=== PATIENT | male | born 1955 | race Asian ===

== ENCOUNTER 2018-05-10 19:36 | Inpatient (IN) | payer SELFPAY ==
[~2018-05-10] VITALS: Ht 170.2 cm; Wt 72.6 kg
[2018-05-10 19:45] VITALS: BP_SYST 156
[2018-05-10] MEDS ORDERED: NACL 0.9% 1,000 ML IV ONE (20:55)
[2018-05-10] MEDS ORDERED: hydrALAZINE HCL 20 MG/ML VIAL IM ONE (21:00)
[2018-05-10] MEDS ORDERED: ASPIRIN 81 MG TAB.CHEW PO ONE (21:00)
[2018-05-10 21:20] LABS: HEMATOCRIT 46.8 % (36-54); HEMOGLOBIN 15.9 g/dL (14.0-18.0); MEAN CORPUSCULAR HEMOGLOBIN 33 pg (27-31); MEAN CORPUSCULAR HGB CONC 34 % (32-36); MEAN CORPUSCULAR VOLUME 98 fL (79.0-98.0); RED BLOOD CELL COUNT(AUTO) 4.79 MIL/uL (4.2-6.2); WHITE BLOOD COUNT (AUTO) 5.7 K/uL (4.8-10.8)
[2018-05-10 21:21] LABS: BASOPHILS # (AUTO) 0.1 K/uL (0.0-0.2); BASOPHILS % (AUTO) 0.9 % (0.0-2.0); EOSINOPHILS # (AUTO) 0.1 K/uL (0.0-0.4); EOSINOPHILS % (AUTO) 1.1 % (0.0-4.0); LYMPHOCYTES % (AUTO) 17.1 % (20.5-51.5); MONOCYTES # (AUTO) 0.5 K/uL (0.0-1.0); MONOCYTES % (AUTO) 9.4 % (1.7-9.3); NEUTROPHILS # (AUTO) 4.1 K/uL (1.8-7.7); NEUTROPHILS % (AUTO) 71.5 % (40.0-70.0); PLATELET COUNT (AUTO) 156 K/uL (130-430); RED CELL DISTRIBUTION WIDTH 12.8 % (9.0-15.0)
[2018-05-10 21:27] LABS: ANION GAP 5 (5-15); CHLORIDE 103 mmol/L (98-107); CREATININE 0.93 mg/dL (0.55-1.30); GLUCOSE 134 mg/dL (70-99); POTASSIUM 3.8 mmol/L (3.5-5.1); SODIUM SERUM 137 mmol/L (136-145); UREA NITROGEN, BLOOD 22 mg/dL (8-21)
[2018-05-10 21:30] LABS: GFR AFRICAN AMERICAN 105 mL/min (>90)
[2018-05-10 21:31] LABS: C-REACTIVE PROTEIN QUANT 0.8 mg/dL (0-0.5)
[2018-05-10 21:33] LABS: PROTHROMBIN TIME 9.8 SECS (9.5-12.5)
[2018-05-10 21:38] LABS: ALANINE AMINOTRANSFERASE 27 U/L (12-78); ALBUMIN 3.6 g/dL (3.4-4.8); ASPARTATE AMINOTRANSFERASE 21 U/L (10-37); TOTAL BILIRUBIN 0.6 mg/dL (0.0-1.0)
[2018-05-10] MEDS ORDERED: METOPROLOL TARTRATE 5 MG/5 ML VIAL IVP ONE (22:00)
[2018-05-10] MEDS ORDERED: LORazepam 2 MG/ML VIAL IVP PRN (22:30)
[2018-05-10] MEDS ORDERED: ONDANSETRON HCL 4 MG/2 ML VIAL IVP PRN (22:30)
[2018-05-10] MEDS ORDERED: ACETAMINOPHEN 325 MG TABLET PO PRN (22:30)
[2018-05-10] MEDS ORDERED: cloNIDine HCL 0.1 MG TABLET PO ONE (22:45)
[2018-05-10] MEDS ORDERED: NITROPRUSSIDE SODIUM 50 MG in D5W 248 ML IV PRN (23:15)
[2018-05-11] VITALS (23 sets, daily range): BP systolic 106–166
[2018-05-11] MEDS ORDERED: NITROPRUSSIDE SODIUM 25 MG/ML VIAL(NIPRIDE) IV ONE (00:11)
[2018-05-11] MEDS ORDERED: NITROPRUSSIDE SODIUM 50 MG in D5W 248 ML IV PRN (01:45)
[2018-05-11] MEDS: D5/0.45 NS 1,000 ML IV SCH ×3 (01:50→22:18)
[2018-05-11 02:59] LABS: BILIRUBIN,URINE NEGATIVE (NEGATIVE); BLOOD, URINE NEGATIVE (NEGATIVE); CLARITY/URINE CLEAR (CLEAR); COLOR,URINE YELLOW (YELLOW); GLUCOSE,URINE NEGATIVE (NEGATIVE); KETONES,URINE NEGATIVE (NEGATIVE); LEUKOCYTE ESTERASE ,URINE NEGATIVE (NEGATIVE); NITRITE, URINE NEGATIVE (NEGATIVE); PROTEIN URINE NEGATIVE (NEGATIVE); UROBILINOGEN,URINE 0.2 (0.2-1.0)
[2018-05-11 06:35] LABS: ALBUMIN 3.3 g/dL (3.4-4.8); CALCIUM 8.5 mg/dL (8.4-11.0); CREATININE 0.77 mg/dL (0.55-1.30); PHOSPHORUS 2.7 mg/dL (2.7-4.5); POTASSIUM 3.6 mmol/L (3.5-5.1)
[2018-05-11 06:44] LABS: HEMOGLOBIN 15.2 g/dL (14.0-18.0); RED BLOOD CELL COUNT(AUTO) 4.48 MIL/uL (4.2-6.2); WHITE BLOOD COUNT (AUTO) 8.6 K/uL (4.8-10.8)
[2018-05-11 06:48] LABS: HEMATOCRIT 44.1 % (36-54); MEAN CORPUSCULAR HEMOGLOBIN 34 pg (27-31); MEAN CORPUSCULAR HGB CONC 34 % (32-36); MEAN CORPUSCULAR VOLUME 98 fL (79.0-98.0); PLATELET COUNT (AUTO) 165 K/uL (130-430); RED CELL DISTRIBUTION WIDTH 12.8 % (9.0-15.0)
[2018-05-11 06:50] LABS: BASOPHILS % (AUTO) 0.4 % (0.0-2.0); EOSINOPHILS % (AUTO) 0.1 % (0.0-4.0); LYMPHOCYTES % (AUTO) 11.7 % (20.5-51.5); MONOCYTES # (AUTO) 0.8 K/uL (0.0-1.0); MONOCYTES % (AUTO) 9.2 % (1.7-9.3); NEUTROPHILS # (AUTO) 6.8 K/uL (1.8-7.7); NEUTROPHILS % (AUTO) 78.6 % (40.0-70.0)
[2018-05-11] MEDS: ASPIRIN 325 MG TABLET PO SCH (08:53)
[2018-05-11] MEDS ORDERED: amLODIPine BESYLATE 10 MG TABLET ONE (21:58)
[2018-05-11] MEDS ORDERED: METOPROLOL TARTRATE 50 MG TABLET ONE (21:59)
[2018-05-11] MEDS: amLODIPine BESYLATE 10 MG TABLET PO SCH (22:04)
[2018-05-11] MEDS: METOPROLOL TARTRATE 50 MG TABLET PO SCH (22:05)
[2018-05-12] VITALS (16 sets, daily range): BP systolic 108–161
[2018-05-12 06:56] LABS: CALCIUM 8.3 mg/dL (8.4-11.0); CREATININE 0.69 mg/dL (0.55-1.30); POTASSIUM 3.6 mmol/L (3.5-5.1)
[2018-05-12] MEDS: ASPIRIN 325 MG TABLET PO SCH (08:14)
[2018-05-12] MEDS: METOPROLOL TARTRATE 50 MG TABLET PO SCH (08:15)
[2018-05-12] MEDS: amLODIPine BESYLATE 10 MG TABLET PO SCH (08:16)
[2018-05-12] MEDS: D5/0.45 NS 1,000 ML IV SCH (08:17)
[2018-05-12 08:46] LABS: HEMATOCRIT 43.9 % (36-54); HEMOGLOBIN 14.7 g/dL (14.0-18.0); MEAN CORPUSCULAR HEMOGLOBIN 33 pg (27-31); MEAN CORPUSCULAR HGB CONC 33 % (32-36); MEAN CORPUSCULAR VOLUME 99 fL (79.0-98.0); PLATELET COUNT (AUTO) 153 K/uL (130-430); RED BLOOD CELL COUNT(AUTO) 4.42 MIL/uL (4.2-6.2); RED CELL DISTRIBUTION WIDTH 12.8 % (9.0-15.0); WHITE BLOOD COUNT (AUTO) 6.9 K/uL (4.8-10.8)
[2018-05-12 08:47] LABS: BASOPHILS # (AUTO) 0.1 K/uL (0.0-0.2); BASOPHILS % (AUTO) 1.3 % (0.0-2.0); EOSINOPHILS # (AUTO) 0.1 K/uL (0.0-0.4); EOSINOPHILS % (AUTO) 1.7 % (0.0-4.0); LYMPHOCYTES % (AUTO) 14.9 % (20.5-51.5); MONOCYTES # (AUTO) 0.7 K/uL (0.0-1.0); MONOCYTES % (AUTO) 10.1 % (1.7-9.3)
[2018-05-12] MEDS ORDERED: TAMS-11 PO (09:54)
[2018-05-12] MEDS ORDERED: ASPI-989 PO (10:44)
[2018-05-12] MEDS ORDERED: METO-442 PO (10:44)
[2018-05-12] MEDS ORDERED: NOR10 PO (10:44)
== END 2018-05-12 14:08 | disposition home or self-care (01) | DRG 69 ==
LOC: SED 19:36 → STU 22:16 → SIC 23:50
PROVIDERS: ADMIT Preventive Medicine Preventive Medicine/Occupational Environmental Medicine; ATTEND Preventive Medicine Preventive Medicine/Occupational Environmental Medicine
DX: G45.9 Transient cerebral ischemic attack, unspecified (principal); I16.1 Hypertensive emergency; N40.0 Benign prostatic hyperplasia without lower urinary tract symptoms; H54.61 Unqualified visual loss, right eye, normal vision left eye; I10 Essential (primary) hypertension; R73.9 Hyperglycemia, unspecified
CPT/HCPCS: 36415; 70450-TC; 71045; 80048; 80053; 81003; 83735-TC; 84100-TC; 84484; 85025; 85610-TC; 85730-TC; 86140; 87081; 93005; 93306; 93880; 96361; 96372; 96374; 99291; G0378; J0360; J3490; J7030